=== PATIENT | male | born 1980 | race Two or more races ===

== ENCOUNTER 2024-02-24 10:48 | Emergency (ER) | payer OTHER ==
[~2024-02-24] VITALS: Ht 167.6 cm; Wt 63.6 kg
[~2024-02-24 10:48] MED LIST: HYDR50CA7 PO; OLAN10TA74 PO
[2024-02-24 10:58] VITALS: BP 109/71; PULSE 102; RESP 14; TEMP 98.3
== END 2024-02-24 13:32 | disposition home or self-care (01) ==
LOC: EMS 10:48
DX: S31.119D Laceration without foreign body of abdominal wall, unspecified quadrant without penetration into peritoneal cavity, subsequent encounter (principal); F17.210 Nicotine dependence, cigarettes, uncomplicated; Z48.02 Encounter for removal of sutures; X58.XXXD Exposure to other specified factors, subsequent encounter
CPT/HCPCS: 99281; Z7502